=== PATIENT | male | born 1935 | race Caucasian/White ===

== ENCOUNTER 2017-02-17 10:06 | Emergency (ER) | payer MEDICARE, OTHER ==
[2017-02-17] MEDS ORDERED: SODIUM CHLORIDE 0.9% 1000ML 1,000 ML IVS ONE (10:20)
[2017-02-17] MEDS ORDERED: MORPHINE SULFATE INJ 10 MG/ML VIAL IV ONE ×2 (10:20→11:08)
--- NOTE | 2017-02-17 10:25 | ED.PDOC ---
History of Present Illness - General Chief Complaint: Problem Stated Complaint: Dysuria & urinary retention Time Seen by Provider: 02/17/17 10:08 Source: patient, RN notes reviewed, Vital Signs reviewed, family - Exam Limitations: no limitations - History of Present Illness Initial Comments: Patient has been having pain with urination for ~6 days. Developed some urinary retention and thus went to the [facility] yesterday and a catheter was placed. He continues to have significant suprapubic pain. Can't remember his last bowel movement. No fever, + chills. Does report pain in perineum that is worse with sitting. NE did not start any medications. Timing/Duration: week, getting worse Quality: severe, dull Onset Location: suprapubic Radiation: none Activites at Onset: none Prior abdominal problems: none Sexual intercourse history: single partner Improving Factors: nothing Worsening Factors: nothing Associated Symptoms: abdominal pain, dysuria, fever/chills Allergies/Adverse Reactions: Allergies NO KNOWN ALLERGY Allergy (Verified 02/17/17 10:23) Home Medications: Ambulatory Orders Acetamin W/Cod #3 Tab [Tylenol w/CODEINE #3] 1 ea PO Q4HR PRN #15 tab 02/17/17 Lactulose 20 gm PO TID PRN #600 ml 02/17/17 levoFLOXacin [Levaquin] 500 mg PO DAILY #13 tab 02/17/17 Review of Systems - Review of Systems Constitutional: States: chills. Denies: diaphoresis, fever, malaise EENTM: States: no symptoms reported Respiratory: States: no symptoms reported Cardiology: States: no symptoms reported Gastrointestinal/Abdominal: States: abdominal pain, constipation. 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 Source:: Wound Family Medical History - Family History Mother Family History: Unknown Physical Exam - Physical Exam General Appearance: Alert, No apparent distress, Well Developed, Well Groomed, Well Hydrated, Well Nourished, Other - Appears uncomfortable Eyes, Ears, Nose, Throat Exam: other - Dry mucous membranes Neck: supple, normal inspection Cardiovascular/Respiratory: regular rate, rhythm, no M/R/G, normal breath sounds , no respiratory distress Gastrointestinal/Abdominal: normal bowel sounds, soft, tenderness - suprapubic without guarding or rebound Extremity: normal range of motion, normal inspection Neurologic: alert, normal mood/affect, oriented x 3 Skin Exam: normal color, warm/dry Progress - Progress Progress: 02/17/17 11:16 +UTI - most likely prostatitis. Will start Levaquin 500mg IV. Got some relief with Morphine 4mg but still having pain. Will give another Morphine 4mg IV. X-ray shows considerable constipation. Will send home with Rx for Lactulose. 02/17/17 12:30 Feeling better. IV antibiotics done Discussed need to have urinary catheter out within the next 3-5 days. Follow up with [facility] - Results/Orders Results/Orders: Laboratory Tests 02/17/17 02/17/17 02/17/17 10:35 10:35 10:35 WBC 5.3 RBC 4.41 L Hgb 13.2 L Hct 39.7 L MCV 90.2 MCH 29.9 MCHC 33.3 RDW 14.5 Plt Count 153 MPV 9.6 Absolute Neuts (auto) 3.50 Absolute Lymphs (auto) 1.00 Absolute Monos (auto) 0.80 Absolute Eos (auto) 0.10 Absolute Basos (auto) 0.00 Neutrophils % 64.8 Lymphocytes % 19.4 L Monocytes % 14.1 H Eosinophils % 1.2 Basophils % 0.5 Sodium 135 Potassium 3.2 L Chloride 102 Carbon Dioxide 24 Anion Gap 12.2 BUN 18 Creatinine 1.07 BUN/Creatinine Ratio 16.8 Random Glucose 103 Serum Osmolality 272.3 L Calcium 8.5 Total Bilirubin 1.0 AST 31 ALT 20 Alkaline Phosphatase 90 Serum Total Protein 7.0 Albumin 3.1 L Globulin 3.9 H Albumin/Globulin Ratio 0.8 L Urine Color Yellow Urine Appearance Sl cloudy Urine pH 6.0 Ur Specific [place] 1.025 Urine Protein 100 H Urine Glucose (UA) Negative Urine Ketones Negative Urine Blood Large H Urine Nitrite Positive H Urine Bilirubin Small H Urine Urobilinogen 2.0 H Ur Leukocyte Esterase Small H Urine RBC 30-40 H Urine WBC 5-10 H Ur Epithelial Cells 0 Urine Bacteria 2+ H - EKG/XRAY/CT XRAY: abdomen - Constipation, o/w no acute findings per Radiologist Departure - Departure Clinical Impression: Prostatitis Qualifiers: Prostatitis type: acute Qualified Code(s): N41.0 - Acute prostatitis Urinary tract infection Qualifiers: Urinary tract infection type: acute cystitis Hematuria presence: with hematuria Qualified Code(s): N30.01 - Acute cystitis with hematuria Constipation Qualifiers: Constipation type: slow transit constipation Qualified Code(s): K59.01 - Slow transit constipation Time of Disposition: 12:31 Disposition: Discharge to Home or Self Care Condition: Good Departure Forms: ED Discharge - Pt. Copy, Patient Portal Self Enrollment Instructions: DI for Acute Prostatitis Diet: resume usual diet Activity: increase activity as tolerated Referrals: Antonio Martell MD [Active Staff] - 1-5 Days Prescriptions: Acetamin W/Cod #3 Tab [Tylenol w/CODEINE #3] 1 ea PO Q4HR PRN #15 tab PRN Reason: Moderate To Severe Pain Lactulose 20 gm PO TID PRN #600 ml PRN Reason: Constipation levoFLOXacin [Levaquin] 500 mg PO DAILY #13 tab Home Medications: Ambulatory Orders Acetamin W/Cod #3 Tab [Tylenol w/CODEINE #3] 1 ea PO Q4HR PRN #15 tab 02/17/17 Lactulose 20 gm PO TID PRN #600 ml 02/17/17 levoFLOXacin [Levaquin] 500 mg PO DAILY #13 tab 02/17/17 Additional Instructions: Need to get catheter removed within 3-5 days.
[2017-02-17 10:57] VITALS: TEMP 98.1
[2017-02-17] MEDS ORDERED: levoFLOXacin 500MG IV 500 MG in PREMIX BAG 1 BAG IVPB ONE (11:08)
--- NOTE | 2017-02-17 11:15 | RAD ---
EXAM DESCRIPTION: Abdomen Flat Upright CLINICAL HISTORY: 81 years Male, Lower abd pain constipation COMPARISON: None. FINDINGS: Bowel gas pattern is normal with considerable stool throughout the colon consistent with constipation. No evidence of fecal impaction within the rectum or rectosigmoid is seen. Extensive prior lumbar surgery with laminectomy from the upper sacrum to the upper L2 level is noted. Unusual calculi or soft tissue masses are not apparent. The lung bases are clear without free abdominal air on the upright view. Advanced degenerative changes in the spine and a tiny amount of scoliosis convex to the right in the upper lumbar region is noted. IMPRESSION: Nonspecific abdomen two views. Electronically signed by: Arnulfo Quan MD 02/17/2017 11:13 AM CDT
[2017-02-17] MEDS ORDERED: levoFLOXacin 500MG IV 100 ML IVPB ONE (11:20)
[2017-02-17 13:25] VITALS: BP 130/55; O2SAT 94
== END 2017-02-17 12:55 | disposition home or self-care (01) ==
LOC: ER 10:06
DX: N30.01 Acute cystitis with hematuria (principal); N41.0 Acute prostatitis; K59.01 Slow transit constipation
CPT/HCPCS: 36415; 74010; 80053; 81001; 85025; 87086; 87088; 87186; J1956; J2270; J7030

== ENCOUNTER 2017-03-04 03:14 | Emergency (ER) | payer MEDICARE, OTHER ==
[2017-03-04 03:32] VITALS: TEMP 98.1; O2SAT 96
--- NOTE | 2017-03-04 03:43 | ED.PDOC ---
History of Present Illness - General Chief Complaint: Problem Stated Complaint: pain c urination onset Th S/P F/C D/C'd Time Seen by Provider: 03/04/17 03:35 Source: patient - History of Present Illness Initial Comments: Refugio Britt 82 y/o male with prostate problem and his pena cath just recently taken out this [facility] since had urinary dribbling since this am.Had been under the care of a Urologist Dr. Chow Timing/Duration: yesterday Quality: burning Onset Location: suprapubic Radiation: none Activites at Onset: other - urination Prior abdominal problems: none Sexual intercourse history: not active Improving Factors: other - not urinating Worsening Factors: other - urinating Associated Symptoms: urinary frequency Allergies/Adverse Reactions: Allergies NO KNOWN ALLERGY Allergy (Verified 03/04/17 03:29) Home Medications: Ambulatory Orders Nitrofurantoin Monohydrate Mac [Macrobid] 100 mg PO BID #14 cap 03/04/17 Review of Systems - Review of Systems Constitutional: States: no symptoms reported EENTM: States: no symptoms reported Respiratory: States: no symptoms reported Cardiology: States: no symptoms reported Genitourinary: States: see HPI Past Medical History (General) - Patient Medical History Hx Seizures: No Hx Stroke: No Hx Dementia: No Hx Asthma: Yes Hx of COPD: Yes Hx Cardiac Disorders: Yes Hx Congestive Heart Failure: No Hx Pacemaker: Yes Hx Hypertension: No Hx Thyroid Disease: No Hx Diabetes: No Hx Gastroesophageal Reflux: No Hx Renal Disease: No Hx Cancer: No Hx of HIV: No Hx Hepatitis C: No Hx MRSA: Yes - Knee 2008 MRSA Source:: Wound Surgical History: other - hernia repair,foot,c-spine,lumbar spine - Vaccination History Hx Tetanus, Diphtheria Vaccination: Yes Hx Influenza Vaccination: Yes Hx Pneumococcal Vaccination: Yes - Social History Hx Tobacco Use: No Hx Chewing Tobacco Use: No Hx Alcohol Use: No Hx Substance Use: No Hx Substance Use Treatment: No Hx Depression: No Feels Threatened In Home Enviroment: No Feels Threatened In a Relationship: No Hx Physical Abuse: No Hx Emotional Abuse: No Hx Suspected Abuse: No Family Medical History - Family History Mother Family History: Unknown Physical Exam - Physical Exam General Appearance: Alert, Anxious, No apparent distress Eyes, Ears, Nose, Throat Exam: normal ENT inspection Neck: non-tender, supple Cardiovascular/Respiratory: regular rate, rhythm, normal peripheral pulses, normal breath sounds Gastrointestinal/Abdominal: normal bowel sounds, non tender, soft, other - distended suprapubic area Rectal Exam: normal rectal tone Male Genital Exam: normal genitalia, other - prostate enlarged Back Exam: no vertebral tenderness Extremity: no pedal edema, no calf tenderness Neurologic: alert, oriented x 3 Progress - Progress Progress: 03/04/17 04:03 Vital Signs - 8 hr 03/04/17 03:20 Temperature 98.1 F Pulse Rate [ 71 monitor] Respiratory 20 Rate Blood Pressure 142/88 [Left Arm] O2 Sat by Pulse 96 Oximetry - Results/Orders Results/Orders: Laboratory Tests 03/04/17 03:35 Urine Color [place] Urine Appearance Clear Urine pH 6.5 Ur Specific [place] 1.010 Urine Protein Negative Urine Glucose (UA) 100 H Urine Ketones Negative Urine Blood Trace-intact H Urine Nitrite Positive H Urine Bilirubin Negative Urine Urobilinogen 0.2 Ur Leukocyte Esterase Negative Urine RBC 0-1 Urine WBC 0-1 Ur Epithelial Cells 0-1 Urine Bacteria 0 Departure - Departure Clinical Impression: Acute urinary retention Time of Disposition: 04:04 Disposition: Discharge to Home or Self Care Condition: Fair Departure Forms: ED Discharge - Pt. Copy, Patient Portal Self Enrollment Prescriptions: Nitrofurantoin Monohydrate Mac [Macrobid] 100 mg PO BID #14 cap Home Medications: Ambulatory Orders Nitrofurantoin Monohydrate Mac [Macrobid] 100 mg PO BID #14 cap 03/04/17 Additional Instructions: Follow up with Urologist Dr. Chow next week
[2017-03-04] MEDS ORDERED: NITROFURANTOIN MONOHYDRATE MAC 100 MG CAP PO ONE (04:06)
[2017-03-04] MEDS ORDERED: NITROFURANTOIN MONO (ER DISP) 100 MG CAP PO ONE (04:06)
[2017-03-04 04:21] VITALS: BP 137/75
== END 2017-03-04 04:24 | disposition home or self-care (01) ==
LOC: ER 03:14
DX: R33.9 Retention of urine, unspecified (principal); J44.9 Chronic obstructive pulmonary disease, unspecified; Z95.0 Presence of cardiac pacemaker

== ENCOUNTER → 2018-04-24 | Outpatient (CLI) | payer OTHER ==
--- NOTE | 2018-04-24 13:30 | RAD ---
EXAM DESCRIPTION: Chest,2 Views CLINICAL HISTORY: CP, HYPERTENSIVE DISORDER COMPARISON: Previous study September 09, 2015 TECHNIQUE: PA/lateral FINDINGS: Cardiac pacer is in place with electrode lead positions unchanged compared to previous study. Discoid atelectasis or linear scarring in the right perihilar and left pericardiac regions. Heart size is normal with normal pulmonary vascularity. No pleural effusion or pneumothorax. Lungs are otherwise clear with no consolidating infiltrate. Lateral view shows intact sternum and spurring in the T-spine. IMPRESSION: No consolidating infiltrate. Electronically signed by: John Hinton MD 04/24/2018 1:29 PM [facility]
== END ==
LOC: YCFC.O 10:58
PROVIDERS: ATTEND Family Medicine
DX: I10 Essential (primary) hypertension (principal); R07.9 Chest pain, unspecified; E78.5 Hyperlipidemia, unspecified; N40.0 Benign prostatic hyperplasia without lower urinary tract symptoms; G62.9 Polyneuropathy, unspecified; R53.83 Other fatigue

== ENCOUNTER → 2018-05-08 | Outpatient (CLI) | payer OTHER ==
[~2018-05-08] MED LIST: ALBUTEROL SULFATE 2.5 MG/3 ML VIAL NEB ONE
== END ==
LOC: RESP 10:44
PROVIDERS: ATTEND Family Medicine
DX: J45.909 Unspecified asthma, uncomplicated (principal)
CPT/HCPCS: 94060; J7611

== ENCOUNTER 2018-05-29 03:37 | Emergency (ER) | payer OTHER ==
[2018-05-29] MEDS ORDERED: ceFAZolin SODIUM 1 GM VIAL IM ONE (03:54)
[2018-05-29] MEDS ORDERED: KETOROLAC TROMETHAMINE INJ 30 MG/ML VIAL IM ONE (03:54)
[2018-05-29 03:57] VITALS: BP 150/76; TEMP 98.4; O2SAT 97
--- NOTE | 2018-05-29 03:58 | ED.PDOC ---
History of Present Illness - General Chief Complaint: Lower Extremity Injury Stated Complaint: painful sores on knees Time Seen by Provider: 05/29/18 03:54 Source: patient Exam Limitations: no limitations - History of Present Illness Initial Comments: PT HELPED INSTALL SOME CARPET 10 DAYS AGO. HAS DEVELOPED PAINFUL NODULES TO THE KNEES BILATERALLY. MILD SWELLING, MILD ERYTHEMA. Improving Factors: nothing Worsening Factors: nothing Allergies/Adverse Reactions: Allergies NO KNOWN ALLERGY Allergy (Verified 03/04/17 03:29) Home Medications: Ambulatory Orders Acetaminophen W/ Codeine [Tylenol W/ CODEINE #3] 1 ea PO Q6HR PRN #24 05/29/18 Cephalexin Monohydrate [Keflex] 500 mg PO TID #30 cap 05/29/18 Lisinopril [Prinivil] 05/29/18 Metoprolol Tartrate [Lopressor] 05/29/18 Omeprazole [Omeprazole Dr] 05/29/18 Pregabalin [Lyrica] 05/29/18 Simvastatin 05/29/18 Sulfamethoxazole-Trimethoprim [Bactrim Ds 800-160 mg] 1 tab PO BID #20 tab 05/29/18 Review of Systems - Review of Systems Constitutional: Denies: chills, fever Gastrointestinal/Abdominal: Denies: nausea, vomiting Musculoskeletal: States: other - GELY KNEE PAIN R>L. Denies: back pain, neck pain Skin: States: lesions, lumps Neurological: Denies: numbness, weakness Endocrine: States: no symptoms reported Past Medical History (General) - Patient Medical History Hx Seizures: No Hx Stroke: No Hx Dementia: No Hx Asthma: Yes Hx of COPD: Yes Hx Cardiac Disorders: Yes Hx Congestive Heart Failure: No Hx Pacemaker: Yes Hx Hypertension: No Hx Thyroid Disease: No Hx Diabetes: No Hx Gastroesophageal Reflux: No Hx Renal Disease: No Hx Cancer: No Hx of HIV: No Hx Hepatitis C: No Hx MRSA: Yes - Knee 2007 MRSA Source:: Wound - Vaccination History Hx Tetanus, Diphtheria Vaccination: Yes Hx Influenza Vaccination: Yes Hx Pneumococcal Vaccination: Yes - Social History Hx Tobacco Use: No Hx Chewing Tobacco Use: No Hx Alcohol Use: No Hx Substance Use: No Hx Substance Use Treatment: No Hx Depression: No Hx Physical Abuse: No Hx Emotional Abuse: No Hx Suspected Abuse: No Family Medical History - Family History Mother Family History: Unknown Physical Exam - Physical Exam General Appearance: Alert, No apparent distress Eyes, Ears, Nose, Throat: PERRL/EOMI, normal ENT inspection Knee: other - NO JT EFFUSION OR TENDERNESS. 2 LESIONS TO ANT KNEE GELY. BOTH WITH SWELLING. ULCERATION TO R KNEE. L SWELLING WITH INDURATION NO FLUCTUENCE. ROOF OF LESION SHOWS SOME EXCORIATION. WARM TO TOUCH Mental Status: alert Skin: other - NEG OTHER THAN NOTED ON MS EXAM. Departure - Departure Clinical Impression: IMMATURE ABSCESS Cellulitis Qualifiers: Site of cellulitis: extremity Site of cellulitis of extremity: lower extremity Laterality: unspecified laterality Qualified Code(s): L03.119 - Cellulitis of unspecified part of limb Time of Disposition: 04:06 Disposition: Discharge to Home or Self Care Condition: Good Departure Forms: ED Discharge - Pt. Copy, Patient Portal Self Enrollment Instructions: Cellulitis (Skin Infection), Adult (DC), Skin Abscess Referrals: Narendra Garcia MD [Primary Care Provider] - 1-2 Weeks Prescriptions: Acetaminophen W/ Codeine [Tylenol W/ CODEINE #3] 1 ea PO Q6HR PRN #24 PRN Reason: Pain Cephalexin Monohydrate [Keflex] 500 mg PO TID #30 cap Sulfamethoxazole-Trimethoprim [Bactrim Ds 800-160 mg] 1 tab PO BID #20 tab Home Medications: Ambulatory Orders Acetaminophen W/ Codeine [Tylenol W/ CODEINE #3] 1 ea PO Q6HR PRN #24 05/29/18 Cephalexin Monohydrate [Keflex] 500 mg PO TID #30 cap 05/29/18 Lisinopril [Prinivil] 05/29/18 Metoprolol Tartrate [Lopressor] 05/29/18 Omeprazole [Omeprazole Dr] 05/29/18 Pregabalin [Lyrica] 05/29/18 Simvastatin 05/29/18 Sulfamethoxazole-Trimethoprim [Bactrim Ds 800-160 mg] 1 tab PO BID #20 tab 05/29/18
[2018-05-29] MEDS ORDERED: HYDROCOD/APAP 5/325 (ER DISP) #3 TAB PO ONE (04:05)
== END 2018-05-29 04:16 | disposition home or self-care (01) ==
LOC: ER 03:37
DX: L02.415 Cutaneous abscess of right lower limb (principal); L02.416 Cutaneous abscess of left lower limb; I51.9 Heart disease, unspecified; J44.9 Chronic obstructive pulmonary disease, unspecified; Z95.0 Presence of cardiac pacemaker; Z86.14 Personal history of Methicillin resistant Staphylococcus aureus infection; Z79.899 Other long term (current) drug therapy
CPT/HCPCS: J0690; J1885

== ENCOUNTER → 2018-05-29 | Outpatient (CLI) | payer OTHER | LOC: YCFC.O 12:58 | PROVIDERS: ATTEND Family Medicine | DX: L02.416 Cutaneous abscess of left lower limb (principal) ==

== ENCOUNTER → 2018-05-29 | Outpatient (CLI) | payer OTHER ==
--- NOTE | 2018-05-29 14:23 | RAD ---
EXAM DESCRIPTION: Knee,Left 2 or More Views CLINICAL HISTORY: CELLULITIS COMPARISON: None. TECHNIQUE: 3 views left FINDINGS: Loss of medial joint space is observed. Anterior tibial and patellar enthesophytes are observed. Some beaking of the patella is observed consistent with patellofemoral joint arthritis. No fracturing is detected. No plain film evidence of osteomyelitis is seen. A tiny joint effusion is evident. IMPRESSION: Degenerative changes are observed most pronounced in the medial joint compartment. A small joint effusion is evident. Electronically signed by: Cornelio Siddiqui MD 05/29/2018 2:22 PM [facility] [employer]
--- NOTE | 2018-05-29 14:24 | RAD ---
EXAM DESCRIPTION: Knee,Right 2 or More Views CLINICAL HISTORY: CELLULITIS COMPARISON: None. TECHNIQUE: 3 views right FINDINGS: Mild loss of medial joint space is observed. 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 An enthesophyte is observed in the region of the anterior tibial tubercle. No fracture is detected. No joint effusion is seen. IMPRESSION: Degenerative changes are observed most pronounced in the medial joint compartment. Electronically signed by: Cornelio Siddiqui MD 05/29/2018 2:22 PM [facility]
== END ==
LOC: LAB.O 12:19
PROVIDERS: ATTEND Family Medicine
DX: L02.416 Cutaneous abscess of left lower limb (principal); L03.119 Cellulitis of unspecified part of limb; M12.861 Other specific arthropathies, not elsewhere classified, right knee; M12.862 Other specific arthropathies, not elsewhere classified, left knee; M25.462 Effusion, left knee

== ENCOUNTER 2018-06-27 11:22 | Emergency (ER) | payer OTHER ==
--- NOTE | 2018-06-27 11:36 | ED.PDOC ---
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 PRESENTS WITH CHEST PAIN THIS MORNING LASTING MORE THAN AN HOUR IT WAS IN THE ANTERIOR PRECARDIAL RADIATING TO THE LEFT SHOULDER AND BACK ASSOCIATED WITH SHORTNESS OF BREATH AND DIAPHORESIS HE WAS GIVEN SL NITRO X 2 WITH SOME RELIEF OF PAIN HE HAD ALSO RECEIVED ASPIRIN 81 MG X 4 PATIENT IS NON COMPLIANT WITH HIS ELEQUIS AND OTHER MEDICATIONS - History of Present Illness Timing/Duration: 1 week, intermittent Severity/Quality: moderate Location: central, shoulder, back Chest Pain Radiation: shoulders, back Activities at Onset: activity Prior Chest Pain/Cardiac Workup: cardiac cath Improving Factors: medication Worsening Factors: movement Nitro Today/Relief: provided by EMS, provided by ED, mild relief Aspirin Treatment Today: 81 mg x 3, provided by EMS Associated Symptoms: diaphoresis, shortness of breath Allergies/Adverse Reactions: Allergies NO KNOWN ALLERGY Allergy (Verified 03/04/17 03:29) Home Medications: Ambulatory Orders Acetaminophen [Gnp Acetaminophen Extra S] 500 mg PO PRN 06/27/18 Apixaban [Eliquis] 2.5 mg PO BID 06/27/18 Cyclobenzaprine HCl [Flexeril] 10 mg PO PRN 06/27/18 Lisinopril 10 mg PO DAILY 06/27/18 Metoprolol Tartrate 12.5 mg PO BID 06/27/18 Omeprazole 20 mg PO DAILY 06/27/18 Pregabalin [Lyrica] 150 mg PO BID 06/27/18 Simvastatin 40 mg PO BEDTIME 06/27/18 Tamsulosin [Flomax] 0.4 mg PO BEDTIME 06/27/18 Review of Systems - Review of Systems Constitutional: States: no symptoms reported EENTM: States: no symptoms reported Respiratory: States: no symptoms reported Cardiology: States: see HPI Gastrointestinal/Abdominal: States: no symptoms reported Genitourinary: States: no symptoms reported Musculoskeletal: States: no symptoms reported Skin: States: no symptoms reported Endocrine: States: no symptoms reported Hematologic/Lymphatic: States: no symptoms reported Past Medical History (General) - Patient Medical History Hx Seizures: No Hx Stroke: No Hx Dementia: No Hx Asthma: Yes Hx of COPD: Yes Hx Cardiac Disorders: Yes Hx Congestive Heart Failure: No Hx Pacemaker: Yes Hx Hypertension: No Hx Thyroid Disease: No Hx Diabetes: No Hx Gastroesophageal Reflux: No Hx Renal Disease: No Hx Cancer: No Hx of HIV: No Hx Hepatitis C: No Hx MRSA: Yes - Knee 2007 MRSA Source:: Wound - Vaccination History Hx Tetanus, Diphtheria Vaccination: Yes Hx Influenza Vaccination: Yes Hx Pneumococcal Vaccination: Yes - Social History Hx Tobacco Use: No Hx Chewing Tobacco Use: No Hx Alcohol Use: No Hx Substance Use: No Hx Substance Use Treatment: No Hx Depression: No Hx Physical Abuse: No Hx Emotional Abuse: No Hx Suspected Abuse: No Family Medical History - Family History Mother Family History: Unknown Physical Exam - Physical Exam General Appearance: Alert, Comfortable Eyes, Ears, Nose, Throat Exam: PERRL/EOMI, normal ENT inspection, TMs normal Neck: non-tender, full range of motion, supple Respiratory: chest non-tender, lungs clear, normal breath sounds Cardiovascular/Chest: normal peripheral pulses, regular rate, rhythm, no edema, no gallop, no JVD, no murmur Peripheral Pulses: radial,right: 2+, radial,left: 2+, femoral,right: 2+, femoral,left: 2+ Gastrointestinal/Abdominal: normal bowel sounds, non tender, soft, no organomegaly, no pulsatile mass 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: 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-XII nml as tested, no motor/sensory deficits, alert, normal mood/affect, oriented x 3 Progress - Results/Orders Results/Orders: LAB DATA REVIEWED TROPONIN WITH IN NORMAL LIMITS DR MILAN HIS 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 Copy, Patient Portal Self Enrollment Instructions: DI for Chest Pain Referrals: Narendra Garcia MD [Primary Care Provider] - 1-2 Weeks Home Medications: Ambulatory Orders Acetaminophen [Gnp Acetaminophen Extra S] 500 mg PO PRN 06/27/18 Apixaban [Eliquis] 2.5 mg PO BID 06/27/18 Cyclobenzaprine HCl [Flexeril] 10 mg PO PRN 06/27/18 Lisinopril 10 mg PO DAILY 06/27/18 Metoprolol Tartrate 12.5 mg PO BID 06/27/18 Omeprazole 20 mg PO DAILY 06/27/18 Pregabalin [Lyrica] 150 mg PO BID 06/27/18 Simvastatin 40 mg PO BEDTIME 06/27/18 Tamsulosin [Flomax] 0.4 mg PO BEDTIME 06/27/18 Transfer to Outside Facility - Transfer Information Accepting Provider:: DR NAKIA AQUINO [facility] HOSPITALIST Accepting Facility: [facility] Reason for Transfer: required specialist not available
[2018-06-27] MEDS ORDERED: MORPHINE SULFATE INJ 10 MG/ML VIAL IV ONE (12:31)
[2018-06-27] MEDS ORDERED: ONDANSETRON INJ 4 MG/2 ML VIAL IV ONE (12:31)
--- NOTE | 2018-06-27 12:42 | RAD ---
EXAM DESCRIPTION: Chest,1 View CLINICAL HISTORY: 83 years Male, CHEST PAIN COMPARISON: April 24, 2018 TECHNIQUE: AP portable chest. FINDINGS: Lungs are clear. No consolidation. Heart normal size. Bipolar pacing device unchanged. IMPRESSION: Normal. Electronically signed by: Lan Glaser MD 06/27/2018 12:41 PM [facility]
[2018-06-27] MEDS ORDERED: ENOXAPARIN SODIUM 100 MG/ML SYG SUBCU ONE (14:40)
[2018-06-27 16:44] VITALS: BP 145/66; TEMP 97.6; O2SAT 97
== END 2018-06-27 16:44 | disposition short-term general hospital (02) ==
LOC: ER 11:22
DX: R07.9 Chest pain, unspecified (principal); I11.9 Hypertensive heart disease without heart failure; J44.9 Chronic obstructive pulmonary disease, unspecified; Z95.0 Presence of cardiac pacemaker; Z79.899 Other long term (current) drug therapy
CPT/HCPCS: 71045; 80048; 80076; 82550; 82553; 84484; 85025; 85610; 85730; 93005; J1650; J2270; J2405

== ENCOUNTER → 2018-07-24 | Outpatient (CLI) | payer OTHER ==
--- NOTE | 2018-07-24 16:17 | CT ---
EXAM DESCRIPTION: CT lumbar spine CLINICAL HISTORY: LUMBAR RADICULOPATHY COMPARISON: None Available. TECHNIQUE: Spiral CT with coronal and sagittal reformatted images FINDINGS: Spondylosis. Diffuse idiopathic skeletal hyperostosis. Mild osteoarthritis of the bilateral sacroiliac joints L5-S1: Postsurgical midline decompressive laminectomy. Moderate facet arthrosis. Osseous fusion across the disc. No canal stenosis. No exiting L5 nerve impingement L4-5: Decompressive laminectomy. Moderate facet arthrosis. Severe entry zone foraminal stenosis on the right from facet spurring and endplate osteophyte ridging. Facet spur compresses the right L4 nerve sagittal reformatted image 61, axial image 79 and 80. Moderate left foraminal narrowing. L3-4: Decompressive laminectomy. Moderate facet arthrosis. Moderate foraminal stenosis right greater than left. Mild impingement of the right L3 nerve sagittal image 58, axial image 67 and 68 L2-3: Decompressive laminectomy. Mild facet arthrosis. Large central ossification contiguous with endplate osteophyte indenting the ventral thecal sac. Moderate foraminal narrowing without exiting nerve impingement L1-2: Decompressive laminectomy. Mild facet arthrosis. No canal stenosis or focal nerve impingement No lytic or blastic bony lesion. 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
--- NOTE | 2018-07-24 16:18 | CT ---
EXAM DESCRIPTION: CTA Runoff CLINICAL HISTORY: PERIPHERAL VASCULAR DISEASE COMPARISON: None. TECHNIQUE: Postcontrast CT images of the abdomen, pelvis, and bilateral lower extremities are obtained. Coronal and sagittal reconstructed images are obtained with 3-D reconstructed images of the arterial vasculature. This exam was performed according to our departmental dose-optimization program, which includes automated exposure control, adjustment of the mA and/or kV according to patient size and/or use of iterative reconstruction technique . FINDINGS: The visualized lung bases are unremarkable. Liver is enlarged and incompletely included in the [id number]. Multiple less than 10 mm calcified gallstones in the dependent portion of the gallbladder seen without gallbladder wall thickening or surrounding inflammation. No biliary tract obstruction. The spleen, pancreas, and adrenal glands are unremarkable. Several fluid attenuation renal cortical cysts are seen bilaterally measuring less than 15 mm diameter. No ureteral calcification or obstruction. The prostate is enlarged. Correlate with physical exam findings and PSA. Differential includes BPH. Appendix is unremarkable. No bowel obstruction. Constipation or obstipation of the colon is seen with scattered diverticuli. No acute inflammatory changes are seen. Osseous structures show no aggressive bony lesions. Moderate degenerative changes and postsurgical changes to the spine are seen. Moderate scattered calcified and noncalcified atherosclerotic disease. No high-grade or flow limiting stenosis of the mesenteric or renal arteries is seen. Iliac arteries are patent. Mild scattered calcified plaque of the common femoral to popliteal arteries without significant vessel narrowing. Normal opacification of the proximal trifurcation vessels is seen with opacification anterior and posterior tibialis arteries to the foot on the right. No flow-limiting stenosis. Origin of the left posterior tibialis artery from the popliteal artery is seen. Trifurcation vessels are patent with opacification of the anterior posterior tibialis arteries to the foot. IMPRESSION: Mild atherosclerotic disease in the abdomen, pelvis, and lower extremities without aneurysmal dilatation of the aorta or flow-limiting stenosis of the vessels. At least two-vessel distal runoff is seen bilaterally. Colon diverticulosis without CT evidence of diverticulitis. Cholelithiasis. Hepatomegaly with fatty infiltration of the liver. Other findings as described in body of report. Electronically signed by: Fahad Fountain MD 07/24/2018 4:15 PM [employer]TE[employer]INEER
--- NOTE | 2018-07-24 19:22 | CT ---
EXAM DESCRIPTION: Cervical Spine: Computed Tomography. CLINICAL HISTORY: 83 years Male CERVICAL RADICULOPATHY COMPARISON: CTA of the aorta and lower extremities and CT scan lumbar spine on this visit. TECHNIQUE: Spiral, axial 2.5 x 2.5 mm scans through the cervical spine without contrast. Coronal and sagittal 2.0 mm Reconstructions. Total Exam DLP: 469.46 mGy-cm. This exam was performed according to our departmental dose-optimization program which includes automated exposure control, adjustment of the mA and/or kV according to patient size and/or use of iterative reconstruction technique; to reduce radiation dose to as low as reasonably achievable (ALARA). FINDINGS: Narrowing of the atlantoaxial occipital joint with partial calcification of the transverse ligament and periarticular spurs. Minimal narrowing of the right lateral occipital joint compared to the left. C1-C2 facets are unremarkable. No fracture. C2-C3: Narrowing of the posterior disc space with Schmorl's nodes and bilateral uncinate spurs narrowing of the left foramen more than the right. Facet arthrosis on the left. Mild canal narrowing. Grade 1 retrolisthesis. C3-C4: Posterior disc space narrowing. Bilateral uncinate spurs. Moderate arthrosis of the right facet joint with borderline right neural foraminal stenosis. Mild left neural foraminal narrowing and mild canal narrowing with bulging disc and osteophytes posteriorly. C4-C5: Posterior disc space loss and midline bulging disc osteophyte complex abutting the cord. Schmorl's node in the superior C5 endplate with prominent anterior spurs to the left of midline. Bilateral uncinate spurs. Mild right facet joint arthrosis and hypertrophy and moderate on the left. Mild right neural foraminal narrowing and left neural foraminal stenosis. No fractures. C5-C6: Prior partial bony fusion with moderate narrowing of the canal. No hardware is seen. No significant facet arthrosis. Bilateral moderate neural foraminal narrowing. No fracture. C6-C7: Advanced arthrosis and disc space loss with endplate ridging. Schmorl's nodes in the endplates. Bilateral uncinate spurs with borderline neural foraminal stenosis more left than right. Posterior disc osteophyte bulge abutting the cord with significant canal narrowing. No fractures. C7-T1: Minimal loss of disc space not well seen. Bilateral uncinate spurs. Minimal disc osteophyte bulge in the canal. Bilateral facet arthrosis with left neural foraminal stenosis and moderate to severe right neural foraminal narrowing. No fractures. No compression type vertebral body fractures. Scoliosis. Cervical lordosis is maintained. IMPRESSION: 1. Moderate arthrosis atlantoaxial joint and right side atlantooccipital joint. No compression type vertebral body fractures or posterior element fractures at any level. 2. Borderline right neural foraminal stenosis C3-C4 with uncinate spur and right facet arthrosis. Correlate for right C4 radiculopathy. 3. Posterior C4-C5 disc osteophyte complex narrowing the canal. Multifactorial left bony neural foraminal stenosis. Correlate for left C5 radiculopathy. 4..No effusion versus posterior bony fusion C5-C6. No metallic hardware. Moderate neural foraminal narrowing bilaterally. 5. C6-C7 bilateral uncinate spurs and borderline neural foraminal stenosis more left than right associated with facet joint arthrosis and hypertrophy. Correlate for C7 radiculopathy. 6. C7-T1 uncinate spurs and facet arthrosis and hypertrophy contributing to left neural foraminal stenosis and moderate right foraminal narrowing. Correlate for associated radiculopathy. Disc space loss and mild spondylosis. Electronically signed by: Darrion Avila MD 07/24/2018 7:20 PM [employer] REPAIRER
== END ==
LOC: CT 13:12
PROVIDERS: ATTEND Psychiatry & Neurology Neurology
DX: Z01.812 Encounter for preprocedural laboratory examination (principal); I73.9 Peripheral vascular disease, unspecified; M50.122 Cervical disc disorder at C5-C6 level with radiculopathy; M51.16 Intervertebral disc disorders with radiculopathy, lumbar region; M25.78 Osteophyte, vertebrae; M43.22 Fusion of spine, cervical region; K57.30 Diverticulosis of large intestine without perforation or abscess without bleeding; K76.0 Fatty (change of) liver, not elsewhere classified; K80.20 Calculus of gallbladder without cholecystitis without obstruction; M47.896 Other spondylosis, lumbar region; M48.062 Spinal stenosis, lumbar region with neurogenic claudication

== ENCOUNTER → 2019-01-30 | Outpatient (CLI) | payer OTHER ==
--- NOTE | 2019-01-30 14:33 | RAD ---
EXAM: Hand,Right 3 Views CLINICAL HISTORY: PAIN IN RIGHT HAND COMPARISON STUDY: None TECHNICAL: AP, lateral and oblique x-rays of the right hand FINDINGS: No acute fracture and no dislocation. There are severe degenerative changes of the radiocarpal joint with complete joint space loss and subchondral sclerosis. There are moderate degenerative changes of the lateral carpal row. Large overhanging osteophytes are seen at the second distal interphalangeal joint and milder degenerative changes of the remaining interphalangeal joint. No significant soft tissue swelling or periarticular erosion. IMPRESSION: 1. 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 2. Large overhanging osteophytes at the second distal interphalangeal joint and mild diffuse degenerative changes of the interphalangeal joint Electronically signed by: Aime Soriano MD 01/30/2019 2:32 PM CDT
== END ==
LOC: RAD 10:03
PROVIDERS: ATTEND Family Medicine
DX: M19.041 Primary osteoarthritis, right hand (principal)

== ENCOUNTER → 2019-04-26 | Outpatient (CLI) | payer OTHER | LOC: YCFC.O 08:27 | PROVIDERS: ATTEND Family Medicine | DX: I10 Essential (primary) hypertension (principal); E78.5 Hyperlipidemia, unspecified; R97.8 Other abnormal tumor markers; R53.83 Other fatigue ==

== ENCOUNTER → 2019-09-09 | Outpatient (CLI) | payer OTHER ==
--- NOTE | 2019-09-09 16:04 | RAD ---
EXAM DESCRIPTION: Chest,1 View CLINICAL HISTORY: 84 years Male, COUGH COMPARISON: 06/27/2018 TECHNIQUE: Single view radiograph of the chest. IMPRESSION: Normal size cardiac silhouette. Partially calcified aorta. Cardiac device in right chest wall with its lead wires overlying the right heart as before. Bibasilar atelectasis. Mild bilateral perihilar fullness which may represent underlying vascular congestion versus bronchitis. No lobar consolidation observed. No pleural effusion or pneumothorax. Thoracic spondylosis. Moderate right glenohumeral arthrosis. Electronically signed by: Charles Doherty MD 09/09/2019 4:03 PM CDT
== END ==
LOC: YCFC.O 15:36
PROVIDERS: ATTEND Nurse Practitioner
DX: J44.1 Chronic obstructive pulmonary disease with (acute) exacerbation (principal); J98.11 Atelectasis; I70.0 Atherosclerosis of aorta; Z95.811 Presence of heart assist device; M19.011 Primary osteoarthritis, right shoulder; M47.894 Other spondylosis, thoracic region

== ENCOUNTER → 2019-09-17 | Outpatient (CLI) | payer OTHER ==
--- NOTE | 2019-09-17 11:07 | RAD ---
EXAM DESCRIPTION: Chest,2 Views CLINICAL HISTORY: DYSPNEA COMPARISON: Previous study September 09, 2019 TECHNIQUE: PA/lateral FINDINGS: Cardiac pacer is in place. Heart size is normal with normal pulmonary vascularity. No pleural effusion or pneumothorax. Lungs are clear with no consolidating infiltrate. Lateral view shows intact sternum and T-spine. Discoid atelectasis or linear scarring in the left upper lobe and lingula. IMPRESSION: No consolidating infiltrate. Electronically signed by: John Hinton MD 09/17/2019 11:06 AM CDT
== END ==
LOC: RAD 10:33
PROVIDERS: ATTEND Family Medicine
DX: R05 Cough (principal); R06.00 Dyspnea, unspecified

== ENCOUNTER → 2019-11-20 | Outpatient (CLI) | payer OTHER | LOC: YCFC.O 08:30 | PROVIDERS: ATTEND Family Medicine | DX: R20.2 Paresthesia of skin (principal); E78.5 Hyperlipidemia, unspecified; I10 Essential (primary) hypertension; R97.8 Other abnormal tumor markers; E53.8 Deficiency of other specified B group vitamins ==

== ENCOUNTER → 2020-05-12 | Outpatient (CLI) | payer OTHER | LOC: YCFC.O 16:24 | PROVIDERS: ATTEND Family Medicine | DX: Z11.59 Encounter for screening for other viral diseases (principal) ==

== ENCOUNTER → 2020-05-12 | Outpatient (CLI) | payer OTHER | LOC: LAB.O 10:01 | PROVIDERS: ATTEND Family Medicine | DX: I10 Essential (primary) hypertension (principal); E78.5 Hyperlipidemia, unspecified; E53.8 Deficiency of other specified B group vitamins; R97.20 Elevated prostate specific antigen [PSA] ==

== ENCOUNTER → 2020-05-26 | Outpatient (CLI) | payer OTHER | LOC: YCFC.O 13:59 | PROVIDERS: ATTEND Nurse Practitioner Family | DX: Z11.59 Encounter for screening for other viral diseases (principal); Z20.828 Contact with and (suspected) exposure to other viral communicable diseases ==

== ENCOUNTER → 2020-06-09 | Outpatient (CLI) | payer OTHER | LOC: YCFC.O 11:41 | PROVIDERS: ATTEND Family Medicine | DX: Z03.818 Encounter for observation for suspected exposure to other biological agents ruled out (principal) ==